=== PATIENT | female | born 1990 | race African-American/Black ===

== ENCOUNTER 2020-12-12 16:26 | Emergency (ER) | payer BC ==
[2020-12-12 16:35] VITALS: BP 113/78
[2020-12-12] MEDS ORDERED: FAMOTIDINE 20 MG TAB PO ONE (16:35)
[2020-12-12] MEDS ORDERED: ONDANSETRON 4 MG ODT TAB PO ONE (16:35)
[2020-12-12] MEDS ORDERED: IBUPROFEN 800 MG TAB PO ONE (16:37)
[2020-12-12] MEDS ORDERED: AMOXICILLIN 500 MG CAP PO ONE (16:54)
--- NOTE | 2020-12-12 17:03 | Emergency Department Report ---
ED Fever HPI - General Chief Complaint: Dyspnea/Respdistress Stated Complaint: EMPLOYEE HE[employer] PUI?: Yes Time Seen by Provider: 12/12/20 16:39 Source: patient Exam Limitations: no limitations - History of Present Illness Initial Comments: Chief complaint: Fever, sore throat, earache, fatigue HPI: This is a 30-year-old female with history of migraine headaches who presents with 7 days of symptoms including fever, headache, fatigue, left ear pain, sore throat. She has cough with deep inspiration. She has lower back pain. She has severe fatigue. 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 No sick contacts at home. She lives with her 3-year-old and 10-year-old children. She also lives with her . Patient also has had horrible night sweats. Patient also has developed canker sores in her mouth. She denies diarrhea abdominal pain vomiting. She denies loss of taste or smell. She does have poor appetite. She denies dysuria, frequent urination or malodorous urine. She has had a 2 negative COVID-19 test via nasal swabs. LMP last week Timing/Duration: week, other (Fever and associated symptoms for several days) Fever Severity/Quality: greater than 102 F Associated Symptoms: cough, muscle aches, sore throat ED Review of Systems ROS: Stated complaint: EMPLOYEE HEALTH Other details as noted in HPI Comment: All other systems reviewed and negative Constitutional: fever, malaise, weakness (Fatigue), other (Night sweats) ENT: ear pain, throat pain Respiratory: cough Cardiovascular: denies: chest pain Gastrointestinal: denies: abdominal pain, nausea, vomiting, diarrhea Genitourinary: denies: urgency, dysuria, frequency, abnormal menses Neurological: headache ED Past Medical Hx - Past Medical History Previous Medical History?: Yes Additional medical history: Migraine headache - Surgical History Past Surgical History?: Yes Additional Surgical History: x2 - Social History Smoking Status: Never Smoker Substance Use Type: None - Medications Home Medications: Home Medications Medication Instructions Recorded Confirmed Last Taken Type Azithromycin [Zithromax Z-GUDELIA] 250 mg PO DAILY 5 Days #6 tablet 12/12/20 Unknown Rx Ondansetron [Zofran Odt] 4 mg PO Q8HR PRN #10 tab.rapdis 12/12/20 Unknown Rx Prednisone [predniSONE 10 mg 10 mg PO .TAPER #1 tab.ds.pk 12/12/20 Unknown Rx (6-Day Pack, 21 Tabs)] ED Physical Exam - General Limitations: No Limitations General appearance: alert, in no apparent distress - Head Head exam: Present: atraumatic, normocephalic - Eye Eye exam: Present: normal appearance - ENT ENT exam: Present: normal orophraynx, mucous membranes moist, other (Right TM: Within normal limits, left TM: Opaque with effusion mild erythema) - Neck Neck exam: Present: normal inspection, full ROM - Respiratory Respiratory exam: Present: rales, other (bilateral rales Posterior inferior thorax). Absent: respiratory distress, wheezes, rhonchi - Cardiovascular Cardiovascular Exam: Present: regular rate, normal rhythm, normal heart sounds. Absent: systolic murmur, diastolic murmur, rubs, gallop - GI/Abdominal GI/Abdominal exam: Present: soft, normal bowel sounds. Absent: distended, tenderness, guarding, rebound - Extremities Exam Extremities exam: Present: normal inspection - Neurological Exam Neurological exam: Present: alert, oriented X3 - Psychiatric Psychiatric exam: Present: normal affect, normal mood - Skin Skin exam: Present: warm, dry, intact, normal color. Absent: rash ED Course Vital Signs 12/12/20 12/12/20 16:30 16:43 Temperature 103.0 F H Pulse Rate 107 H Respiratory 20 18 Rate Blood Pressure 113/78 O2 Sat by Pulse 93 Oximetry ED Medical Decision Making - Lab Data Laboratory Results - last 24 hr 12/12/20 Unknown Influenza A (Rapid) Negative Influenza B (Rapid) Negative Group A Strep Rapid Negative - Radiology Data Radiology results: report reviewed, image reviewed CHEST 1 VIEW 12/12/2020 5:02 PM INDICATION / CLINICAL INFORMATION: SOB, +covid. COMPARISON: None available. FINDINGS: SUPPORT DEVICES: None. HEART / MEDIASTINUM: No significant abnormality. LUNGS / PLEURA: Mild patchy bilateral pulmonary opacities in bilateral lung bases. No pneumothorax. ADDITIONAL FINDINGS: No significant additional findings. IMPRESSION: 1. Mild patchy bibasilar pulmonary opacities may represent viral versus atypical infectious process given the patient's clinical history. - Medical Decision Making 1. Viral syndrome suspect COVID-19 multifocal pneumonia supports diagnosis of COVID-19 supportive therapy prescribed azithromycin and prednisone taper. She understands that 10-day quarantine is recommended. 2. Left otitis media: Patient will receive azithromycin to address pneumonia and otitis media. Patient is appropriate for discharge. She is not exhibiting work of breathing or hypoxia. Rapid flu rapid strep both negative. Critical care attestation.: If time is entered above; I have spent that time in minutes in the direct care of this critically ill patient, excluding procedure time. ED Disposition Clinical Impression: Left otitis media, Suspected COVID-19 virus infection, Atypical pneumonia Disposition: DC- TO HOME OR SELFCARE Is pt being admited?: No Does the pt Need Aspirin: No Condition: Stable Instructions: Otitis Media, Adult, [id number], COVID-19 Prescriptions: Prednisone [predniSONE 10 mg (6-Day Pack, 21 Tabs)] 10 mg PO .TAPER #1 tab.ds.pk Azithromycin [Zithromax Z-GUDELIA] 250 mg PO DAILY 5 Days #6 tablet Ondansetron [Zofran Odt] 4 mg PO Q8HR PRN #10 tab.rapdis PRN Reason: Nausea
--- NOTE | 2020-12-12 17:17 | XRay Report ---
CHEST 1 VIEW 12/12/2020 5:02 PM INDICATION / CLINICAL INFORMATION: SOB, +covid. COMPARISON: None available. FINDINGS: SUPPORT DEVICES: None. HEART / MEDIASTINUM: No significant abnormality. LUNGS / PLEURA: Mild patchy bilateral pulmonary opacities in bilateral lung bases. No pneumothorax. ADDITIONAL FINDINGS: No significant additional findings. IMPRESSION: 1. Mild patchy bibasilar pulmonary opacities may represent viral versus atypical infectious process g iven the patient's clinical history. Signer Name: Leo Truong MD Signed: 12/12/2020 5:13 PM Workstation Name: [id number]
== END 2020-12-12 19:05 | disposition home or self-care (01) ==
LOC: ED 16:26
DX: J18.9 Pneumonia, unspecified organism (principal); H66.92 Otitis media, unspecified, left ear; G43.909 Migraine, unspecified, not intractable, without status migrainosus; Z79.899 Other long term (current) drug therapy; Z88.2 Allergy status to sulfonamides; Z88.8 Allergy status to other drugs, medicaments and biological substances; Z98.890 Other specified postprocedural states; Z20.828 Contact with and (suspected) exposure to other viral communicable diseases
CPT/HCPCS: 71045; 87116; 87400; 87430; Q0162

== ENCOUNTER 2020-12-29 07:08 | Emergency (ER) | payer BC ==
--- NOTE | 2020-12-29 07:31 | Emergency Department Report ---
ED General Adult HPI - General Chief complaint: Weakness Stated complaint: WEAKNESS PUI?: No Time Seen by Provider: 12/29/20 07:18 Source: patient, RN notes reviewed, old records reviewed Mode of arrival: Ambulatory Limitations: No Limitations - History of Present Illness Initial comments: The patient was evaluated in the emergency department for symptoms described in the history of present illness. He/she was evaluated in the context of the global COVID-19 pandemic, which necessitated consideration that the patient might be at risk for infection with the virus that causes COVID-19. Institutional protocols and algorithms that pertain to the evaluation of patients at risk for COVID-19 are in a state of rapid change based on information released by regulatory bodies including the CDC and federal and state organizations. These policies and algorithms were followed during the patient's care in the emergency department. Please note that these policies, procedures and recommendations changed on a rapid basis. Patient is a 30-year-old female. 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 I have not treated her as a provider before. She states she has no chronic medical conditions. She was seen in this department about a week ago for acute febrile illness, and suspected Covid symptomatology. She was treated as an outpatient appropriately. Of note, she had negative Covid test and flu test. Patient states that in the beginning of November, sometime around December 05, she developed typical Covid symptomatology, including cough, body aches, malaise, fatigue and weakness. The patient presents to the ER today with complaints of persistent weakness, fatigue. Denies fever, vomiting, diarrhea, abdominal pain, body pain. She does not think that she is . No travel, surgery, leg pain, leg swelling, oral contraceptive use. She is not having physical pain at this time. She indicates that she feels "wiped out." She has been back to work for about a week. Of note, multiple negative Covid test as an outpatient -: Gradual, days(s) Consistency: constant Improves with: rest Worsens with: movement - Related Data Previous Rx's Medication Instructions Recorded Last Taken Type Azithromycin [Zithromax Z-GUDELIA] 250 mg PO DAILY 5 Days #6 tablet 12/12/20 Unknown Rx Ondansetron [Zofran Odt] 4 mg PO Q8HR PRN #10 tab.rapdis 12/12/20 Unknown Rx Prednisone [predniSONE 10 mg 10 mg PO .TAPER #1 tab.ds.pk 12/12/20 Unknown Rx (6-Day Pack, 21 Tabs)] Allergies Allergy/AdvReac Type Severity Reaction Status Date / Time sulfamethoxazole Allergy Hives Verified 12/12/20 16:39 [From Bactrim] trimethoprim [From Bactrim] Allergy Hives Verified 12/12/20 16:39 ED Review of Systems ROS: Stated complaint: WEAKNESS Other details as noted in HPI Constitutional: malaise, weakness ENT: denies: dental pain, epistaxis Respiratory: shortness of breath Cardiovascular: dyspnea on exertion. denies: chest pain Gastrointestinal: denies: abdominal pain Genitourinary: denies: dysuria Musculoskeletal: myalgia Neurological: headache, weakness ED Past Medical Hx - Past Medical History Additional medical history: Migraine headache - Surgical History Additional Surgical History: x2 - Social History Smoking Status: Never Smoker Substance Use Type: None - Medications Home Medications: Home Medications Medication Instructions Recorded Confirmed Last Taken Type Azithromycin [Zithromax Z-GUDELIA] 250 mg PO DAILY 5 Days #6 tablet 12/12/20 Unknown Rx Ondansetron [Zofran Odt] 4 mg PO Q8HR PRN #10 tab.rapdis 12/12/20 Unknown Rx Prednisone [predniSONE 10 mg 10 mg PO .TAPER #1 tab.ds.pk 12/12/20 Unknown Rx (6-Day Pack, 21 Tabs)] ED Physical Exam - General Limitations: No Limitations General appearance: alert, in no apparent distress - Head Head exam: Present: atraumatic, normocephalic - Eye Eye exam: Present: normal appearance, EOMI. Absent: nystagmus - ENT ENT exam: Present: normal exam, normal orophraynx, mucous membranes moist, normal external ear exam - Neck Neck exam: Present: normal inspection, full ROM. Absent: tenderness, meningismus - Respiratory Respiratory exam: Present: normal lung sounds bilaterally. Absent: respiratory distress, wheezes, rales, rhonchi, stridor, decreased breath sounds - Cardiovascular Cardiovascular Exam: Present: regular rate, normal rhythm, normal heart sounds. Absent: bradycardia, tachycardia, irregular rhythm, systolic murmur, diastolic murmur, rubs, gallop - GI/Abdominal GI/Abdominal exam: Present: soft. Absent: distended, tenderness, rebound, rigid, pulsatile mass - Extremities Exam Extremities exam: Present: normal inspection, full ROM, other (2+ pulses noted in the bilateral upper and lower extremities. There is no palpable cord. negative Homans sign. Muscular compartments are soft. The pelvis is stable.). Absent: pedal edema, calf tenderness - Back Exam Back exam: Present: normal inspection, full ROM. Absent: tenderness, CVA tenderness (R), CVA tenderness (L), paraspinal tenderness, vertebral tenderness - Neurological Exam Neurological exam: Present: alert, oriented X3, normal gait, other (No facial droop. Tongue midline. Extraocular movements intact bilaterally. Facial s ensation intact to light touch in V1, V2, V3 distribution bilaterally. 5 and a 5 strength in 4 extremities. Sensation intact to light touch in 4 extremities.). Absent: motor sensory deficit - Psychiatric Psychiatric exam: Present: normal affect, normal mood - Skin Skin exam: Present: warm, dry, intact, normal color. Absent: rash ED Course Vital Signs 12/29/20 12/29/20 07:36 08:12 Temperature 98.2 F Pulse Rate 78 Respiratory 18 Rate Blood Pressure 139/73 [Left] O2 Sat by Pulse 98 Oximetry O2 Sat by Pulse 99 Oximetry [ Digit-Finger] - Reevaluation(s) Reevaluation #1: 12/29/20 07:59 Differential diagnosis, including but not limited to: Post Covid syndrome, electrolyte derangement, thyroid derangement, renal derangement, hepatic derangement Assessment and plan: 30-year-old female, who is currently afebrile, with reassuring vital signs, PERC negative, not currently tachycardic, hypoxic or tachypneic, who I suspect clinically had Covid virus, and now has post Covid syndrome/deconditioning. Lung sounds are clear. Saturating 99% on room air. Do not see indication for repeat chest x-ray. Counseled patient that this is most likely post Covid syndrome. Check appropriate laboratory studies, EKG, reassess. Reevaluation #2: 12/29/20 09:06 Reassessed. No acute distress. Resting comfortably in stretcher. Laboratory studies are unremarkable. EKG with probable juvenile T wave inversion. Patient reassessed, explained significance of findings to patient. She has articulated understanding. I suspect the patient is experiencing post Covid syndrome symptomatology. She will need to follow-up with an outpatient primary care doctor - Pulse Oximetry Interpretation Digit-Finger Initial Pulse Oximetry Readin O2 Sat by Pulse Oximetry: 99 Actions Taken: none ED Medical Decision Making - Lab Data Result diagrams: 12/29/20 07:49 12/29/20 07:49 Vital Signs 12/29/20 07:36 Temperature 98.2 F Pulse Rate 78 Respiratory 18 Rate Blood Pressure 139/73 [Left] O2 Sat by Pulse 98 Oximetry Lab Results 12/29/20 12/29/20 12/29/20 Range/Units 07:49 07:49 07:49 WBC 7.7 (4.5-11.0) K/mm3 RBC 4.13 (3.65-5.03) M/mm3 Hgb 13.1 (10.1-14.3) gm/dl Hct 38.1 (30.3-42.9) % MCV 92 (79-97) fl MCH 32 (28-32) pg MCHC 35 H (30-34) % RDW 12.0 L (13.2-15.2) % Plt Count 217 (140-440) K/mm3 Lymph % (Auto) 28.8 (13.4-35.0) % [place] % (Auto) 6.8 (0.0-7.3) % Eos % (Auto) 2.7 (0.0-4.3) % Baso % (Auto) 0.8 (0.0-1.8) % Lymph # (Auto) 2.2 (1.2-5.4) K/mm3 [place] # (Auto) 0.5 (0.0-0.8) K/mm3 Eos # (Auto) 0.2 (0.0-0.4) K/mm3 Baso # (Auto) 0.1 (0.0-0.1) K/mm3 Seg Neutrophils % 60.9 (40.0-70.0) % Seg Neutrophils # 4.7 (1.8-7.7) K/mm3 Sodium 136 L (137-145) mmol/L Potassium 4.0 (3.6-5.0) mmol/L Chloride 104.3 (98-107) mmol/L Carbon Dioxide 25 (22-30) mmol/L Anion Gap 11 mmol/L BUN 9 (7-17) mg/dL Creatinine 0.6 (0.6-1.2) mg/dL Estimated GFR > 60 ml/min BUN/Creatinine Ratio 15 % Glucose 98 (65-100) mg/dL Calcium 8.7 (8.4-10.2) mg/dL Magnesium 1.90 (1.7-2.3) mg/dL Total Bilirubin 0.50 (0.1-1.2) mg/dL AST 20 (5-40) units/L ALT 33 (7-56) units/L Alkaline Phosphatase 45 (35-129) units/L Total Creatine Kinase 66 (30-135) units/L Total Protein 7.4 (6.3-8.2) g/dL Albumin 4.2 (3.9-5) g/dL Albumin/Globulin Ratio 1.3 % TSH 1.690 (0.270-4.200) mlU/mL HCG, Quant (0-4) mIU/mL 12/29/20 Range/Units 07:49 WBC (4.5-11.0) K/mm3 RBC (3.65-5.03) M/mm3 Hgb (10.1-14.3) gm/dl Hct (30.3-42.9) % MCV (79-97) fl MCH (28-32) pg MCHC (30-34) % RDW (13.2-15.2) % Plt Count (140-440) K/mm3 Lymph % (Auto) (13.4-35.0) % [place] % (Auto) (0.0-7.3) % Eos % (Auto) (0.0-4.3) % Baso % (Auto) (0.0-1.8) % Lymph # (Auto) (1.2-5.4) K/mm3 [place] # (Auto) (0.0-0.8) K/mm3 Eos # (Auto) (0.0-0.4) K/mm3 Baso # (Auto) (0.0-0.1) K/mm3 Seg Neutrophils % (40.0-70.0) % Seg Neutrophils # (1.8-7.7) K/mm3 Sodium (137-145) mmol/L Potassium (3.6-5.0) mmol/L Chloride (98-107) mmol/L Carbon Dioxide (22-30) mmol/L Anion Gap mmol/L BUN (7-17) mg/dL Creatinine (0.6-1.2) mg/dL Estimated GFR ml/min BUN/Creatinine Ratio % Glucose (65-100) mg/dL Calcium (8.4-10.2) mg/dL Magnesium (1.7-2.3) mg/dL Total Bilirubin (0.1-1.2) mg/dL AST (5-40) units/L ALT (7-56) units/L Alkaline Phosphatase (35-129) units/L Total Creatine Kinase (30-135) units/L Total Protein (6.3-8.2) g/dL Albumin (3.9-5) g/dL Albumin/Globulin Ratio % TSH (0.270-4.200) mlU/mL HCG, Quant < 2 (0-4) mIU/mL - EKG Data -: EKG Interpreted by Me EKG shows normal: sinus rhythm Rate: normal - EKG Data When compared to previous EKG there are: previous EKG unavailable 12/29/20 08:12 Sinus rhythm, 65 bpm. Normal axis, normal intervals. Juvenile T wave inversion pattern V2, V3. Abnormal EKG. Not a STEMI. Critical care attestation.: If time is entered above; I have spent that time in minutes in the direct care of this critically ill patient, excluding procedure time. ED Disposition Clinical Impression: Persistent fatigue after COVID-19 Disposition: DC-01 TO HOME OR SELFCARE Is pt being admited?: No Does the pt Need Aspirin: No Condition: Stable Instructions: Fatigue Additional Instructions: As we discussed, we suspect that the patient is experiencing post Covid syndrome fatigue. This is a clinical impression/diagnosis. Please follow-up with a primary care doctor within the next week. Please return to the emergency room right away with new pain, worsened pain, migration of pain, projectile vomiting, change in mental status, confusion, inability to tolerate liquid feeds, new, worsened or different symptoms not present on the initial emergency room evaluation. Please drink plenty of fluids, patient may alternate [id number] ibuprofen and acetaminophen as needed for pain and/or discomfort. Referrals: NATALIE CURTIS MD [Staff Physician] - 3-5 Days [facility] [Provider Group] - 3-5 Days Forms: Work/School Release Form(ED)
[2020-12-29 07:41] VITALS: BP 139/73
[2020-12-29 08:29] LABS: Basophils # (Auto) 0.1 K/mm3 (0.0-0.1); Basophils % (Auto) 0.8 % (0.0-1.8); Eosinophils # (Auto) 0.2 K/mm3 (0.0-0.4); Eosinophils % (Auto) 2.7 % (0.0-4.3); Hematocrit 38.1 % (30.3-42.9); Hemoglobin 13.1 gm/dl (10.1-14.3); Lymphocytes # (Auto) 2.2 K/mm3 (1.2-5.4); Lymphocytes % (Auto) 28.8 % (13.4-35.0); Mean Corpuscular HGB Conc 35 % (30-34); Mean Corpuscular Volume 92 fl (79-97); Monocytes # (Auto) 0.5 K/mm3 (0.0-0.8); Monocytes % (Auto) 6.8 % (0.0-7.3); Platelet Count 217 K/mm3 (140-440); Red Blood Count 4.13 M/mm3 (3.65-5.03)
[2020-12-29 08:52] LABS: Alanine Aminotransferase 33 units/L (7-56); Albumin 4.2 g/dL (3.9-5); Blood Urea Nitrogen 9 mg/dL (7-17); Calcium 8.7 mg/dL (8.4-10.2); Hemolysis Index 5
[2020-12-29 08:54] LABS: BUN/Creatinine Ratio 15
== END 2020-12-29 09:14 | disposition home or self-care (01) ==
LOC: ED 07:08
DX: U07.1 COVID-19 (principal); R53.83 Other fatigue; R53.1 Weakness; G43.909 Migraine, unspecified, not intractable, without status migrainosus; Z98.890 Other specified postprocedural states; Z79.2 Long term (current) use of antibiotics; Z79.899 Other long term (current) drug therapy; Z88.8 Allergy status to other drugs, medicaments and biological substances
CPT/HCPCS: 36415; 80053; 82550; 83735; 84443; 84702; 85025; 93005

== ENCOUNTER 2021-08-16 01:00 | Emergency (ER) | payer BC ==
[~2021-08-16 01:00] MED LIST: ACETAMINOPHEN 325 MG TAB PO ONE; ONDANSETRON 4 MG/2 ML INJ IV ONE; SODIUM CHLORIDE 0.9% 1000 ML 1,000 ML IV ONE
[2021-08-16] MEDS ORDERED: SODIUM CHLORIDE 0.9% 1000 ML 1,000 ML ONE (01:08)
[2021-08-16] MEDS ORDERED: ONDANSETRON 4 MG/2 ML INJ ONE (01:08)
[2021-08-16] MEDS ORDERED: ACETAMINOPHEN 325 MG TAB ONE (01:08)
[2021-08-16] MEDS ORDERED: guaiFENesin/CODEINE 100-10MG ORAL LIQD 5 ML PO ONE (03:28)
--- NOTE | 2021-08-16 03:30 | Emergency Department Report ---
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 Patient presented to the ER complaining of fever, shortness of breath and cough for the last 2 to 3 days. Patient stated that she tested positive for COVID-19 and yesterday. Patient stated that she was taking TheraFlu with no help. Patient denied any chest pain. She also denied any vomiting. No abdominal pain. -: Last night - Related Data Previous Rx's Medication Instructions Recorded Last Taken Type Azithromycin [Zithromax Z-GUDELIA] 250 mg PO DAILY 5 Days #6 tablet 12/12/20 Unknown Rx Ondansetron [Zofran Odt] 4 mg PO Q8HR PRN #10 tab.rapdis 12/12/20 Unknown Rx Prednisone [predniSONE 10 mg 10 mg PO .TAPER #1 tab.ds.pk 12/12/20 Unknown Rx (6-Day Pack, 21 Tabs)] Allergies Allergy/AdvReac Type Severity Reaction Status Date / Time sulfamethoxazole Allergy Hives Verified 12/12/20 16:39 [From Bactrim] trimethoprim [From Bactrim] Allergy Hives Verified 12/12/20 16:39 ED Review of Systems ROS: Stated complaint: Other details as noted in HPI Comment: All other systems reviewed and negative Constitutional: chills, fever Respiratory: cough, shortness of breath, SOB with exertion, SOB at rest. denies: wheezing Cardiovascular: denies: chest pain, palpitations Gastrointestinal: nausea, diarrhea. denies: abdominal pain, vomiting, constipation, hematemesis, melena, hematochezia Musculoskeletal: denies: back pain Neurological: weakness. denies: headache, numbness, paresthesias, confusion, abnormal gait ED Past Medical Hx - Past Medical History Additional medical history: Migraine headache - Surgical History Additional Surgical History: x2 - Social History Smoking Status: Never Smoker Substance Use Type: None - Medications Home Medications: Home Medications Medication Instructions Recorded Confirmed Last Taken Type Azithromycin [Zithromax Z-GUDELIA] 250 mg PO DAILY 5 Days #6 tablet 12/12/20 Unknown Rx Ondansetron [Zofran Odt] 4 mg PO Q8HR PRN #10 tab.rapdis 12/12/20 Unknown Rx Prednisone [predniSONE 10 mg 10 mg PO .TAPER #1 tab.ds.pk 12/12/20 Unknown Rx (6-Day Pack, 21 Tabs)] ED Physical Exam - General General appearance: alert, in no apparent distress, anxious - Head Head exam: Present: atraumatic, normocephalic, normal inspection - Eye Eye exam: Present: normal appearance, PERRL - ENT ENT exam: Present: mucous membranes dry - Neck Neck exam: Present: normal inspection, full ROM. Absent: tenderness, meningismus - Respiratory Respiratory exam: Present: normal lung sounds bilaterally - Cardiovascular Cardiovascular Exam: Present: regular rate, normal rhythm, normal heart sounds - GI/Abdominal GI/Abdominal exam: Present: soft. Absent: distended, tenderness, guarding, rebound - Extremities Exam Extremities exam: Present: normal inspection, full ROM, normal capillary refill. Absent: tenderness - Back Exam Back exam: Present: normal inspection, full ROM. 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 Patient presented to the ER complaining of fever, shortness of breath and cough for the last 2 to 3 days. Patient stated that she tested positive for COVID-19 and yesterday. Patient stated that she was taking TheraFlu with no help. Patient denied any chest pain. She also denied any vomiting. No abdominal pain. Labs reviewed and is unremarkable. Chest x-ray showed no evidence of pneumonia. Patient received normal saline, Zofran, Robitussin-AC and Tylenol. Patient stated that she is feeling much better. Patient oxygen saturation remained above 99% on room air. Patient advised to follow-up with her primary care physician in the next 2 to 3 days and to return to the ER if she develop any new symptoms. Critical care attestation.: If time is entered above; I have spent that time in minutes in the direct care of this critically ill patient, excluding procedure time. ED Disposition Clinical Impression: COVID-19 virus infection Disposition: HOME / SELF CARE / HOMELESS Is pt being admited?: No Condition: Stable Instructions: COVID-19, Prevent the Spread of COVID-19 if You Are Sick - [facility] Referrals: PRIMARY CARE,MD [Primary Care Provider] - 3-5 Days Forms: Work/School Release Form(ED)
[2021-08-16 03:48] VITALS: BP 102/59
--- NOTE | 2021-08-17 12:20 | XRay Report ---
. Chest INDICATION / CLINICAL INFORMATION: covid + post vax. COMPARISON: None available. FINDINGS: SUPPORT DEVICES: None. HEART /PULMONARY VASCULATURE: No significant abnormality. LUNGS / PLEURA: Low lung volumes are present. Mild opacities within the right lung base and mid left lung, suspicious for infiltrate. No sizable pleural effusion. No pneumothorax. ADDITIONAL FINDINGS: No significant additional findings. IMPRESSION: Mild bilateral patchy airspace opacities, suspicious for infiltrate. Signer Name: Martin Booker MD Signed: 08/16/2021 1:31 AM Workstation Name: [id number]
== END 2021-08-16 04:05 | disposition home or self-care (01) ==
LOC: ED 01:00
DX: U07.1 COVID-19 (principal); G43.909 Migraine, unspecified, not intractable, without status migrainosus; Z98.890 Other specified postprocedural states; Z79.899 Other long term (current) drug therapy
CPT/HCPCS: 36415; 71045; 87040; 99283; J2405; J7030

== ENCOUNTER 2022-04-05 12:56 | Emergency (ER) | payer OTHER ==
[2022-04-05 13:06] VITALS: BP 137/80
--- NOTE | 2022-04-05 13:29 | XRay Report ---
RIGHT WRIST 4 VIEWS INDICATION: wrist pain. COMPARISON: None. IMPRESSION: No acute osseous or soft tissue abnormality. No significant DJD. Signer Name: Fausto Dior Jr, MD Signed: 04/05/2022 1:25 PM Workstation Name: [id number]
--- NOTE | 2022-04-05 13:56 | Emergency Department Report ---
ED Upper Extremity Inj HPI - General Chief Complaint: Extremity Injury, Upper Stated Complaint: RT HAND INJURY Time Seen by Provider: 04/05/22 13:04 Source: patient Mode of arrival: Ambulatory Limitations: No Limitations - History of Present Illness Initial Comments: This is a 32-year-old female nontoxic, well nourished in appearance, no acute signs of distress presents to the ED with c/o of right wrist pain 1 day. Patient stated that while at work a patient injured her wrist. Patient denies any injuries or trauma. Stated has some numbness and tingling. Patient denies any fever, chills, nausea, vomiting, chest pain, shortness of breath, headache, stiff neck. Patient denies any joint swelling or joint redness. Patient stated has some decreased range of motion due to pain. Patient denies any allergies. MD Complaint: Injury to:: right, wrist -: days(s) Other Extremity Injury: Wrist: Right Place: work Severity scale (0 -10): 8 Improves With: immobilization Worsens With: movement of extremity Associated Symptoms: denies other symptoms. denies: weakness, numbness, neck pain, suspects foreign body, nausea/vomiting, heard/felt popping sensat - Related Data Previous Rx's Medication Instructions Recorded Last Taken Type Azithromycin [Zithromax Z-GUDELIA] 250 mg PO DAILY 5 Days #6 tablet 12/12/20 Unknown Rx Ondansetron [Zofran Odt] 4 mg PO Q8HR PRN #10 tab.rapdis 12/12/20 Unknown Rx Prednisone [predniSONE 10 mg 10 mg PO .TAPER #1 tab.ds.pk 12/12/20 Unknown Rx (6-Day Pack, 21 Tabs)] Ondansetron [Zofran Odt] 4 mg PO Q8HR PRN #14 tab.rapdis 08/16/21 Unknown Rx guaiFENesin/CODEINE [Robitussin AC] 10 ml PO TID PRN #100 ml 08/16/21 Unknown Rx Acetaminophen/Codeine [Tylenol 1 tab PO Q6H PRN #12 tab 04/05/22 Unknown Rx /Codeine # 3 tab] Allergies Allergy/AdvReac Type Severity Reaction Status Date / Time sulfamethoxazole Allergy Hives Verified 08/16/21 03:36 [From Bactrim] trimethoprim [From Bactrim] Allergy Hives Verified 08/16/21 03:36 ED Review of Systems ROS: Stated complaint: RT HAND INJURY Other details as noted in HPI Comment: All other systems reviewed and negative Constitutional: denies: chills, fever Eyes: denies: eye pain, eye discharge, vision change ENT: denies: ear pain, throat pain Respiratory: denies: cough, shortness of breath, wheezing Cardiovascular: denies: chest pain, palpitations Endocrine: no symptoms reported Gastrointestinal: denies: abdominal pain, nausea, diarrhea Genitourinary: denies: urgency, dysuria, discharge Musculoskeletal: denies: back pain, joint swelling, arthralgia Skin: denies: rash, lesions Neurological: denies: headache, weakness, paresthesias Psychiatric: denies: anxiety, depression Hematological/Lymphatic: denies: easy bleeding, easy bruising ED Past Medical Hx - Past Medical History Previous Medical History?: No Additional medical history: Migraine headache - Surgical History Past Surgical History?: No Additional Surgical History: x2 - Social History Smoking Status: Never Smoker Substance Use Type: None - Medications Home Medications: Home Medications Medication Instructions Recorded Confirmed Last Taken Type Azithromycin [Zithromax Z-GUDELIA] 250 mg PO DAILY 5 Days #6 tablet 12/12/20 Unknown Rx Ondansetron [Zofran Odt] 4 mg PO Q8HR PRN #10 tab.rapdis 12/12/20 Unknown Rx Prednisone [predniSONE 10 mg 10 mg PO .TAPER #1 tab.ds.pk 12/12/20 Unknown Rx (6-Day Pack, 21 Tabs)] Ondansetron [Zofran Odt] 4 mg PO Q8HR PRN #14 tab.rapdis 08/16/21 Unknown Rx guaiFENesin/CODEINE [Robitussin AC] 10 ml PO TID PRN #100 ml 08/16/21 Unknown Rx Acetaminophen/Codeine [Tylenol 1 tab PO Q6H PRN #12 tab 04/05/22 Unknown Rx /Codeine # 3 tab] ED Physical Exam - General Limitations: No Limitations General appearance: alert, in no apparent distress - Head Head exam: Present: atraumatic, normocephalic - Eye Eye exam: Present: normal appearance - Neck Neck exam: Present: full ROM - Respiratory Respiratory exam: Absent: respiratory distress - Cardiovascular Cardiovascular Exam: Present: regular rate - Extremities Exam Extremities exam: Present: normal inspection, full ROM, tenderness, normal capillary refill. Absent: joint swelling - Expanded Upper Extremity Exam Right General: Present: normal inspection Shoulder Exam: Present: normal inspection, full ROM. Absent: tenderness, swelling Upper Arm exam: Present: normal inspection, full ROM. Absent: tenderness, swelling Elbow exam: Present: normal inspection, full ROM. Absent: tenderness, swelling Forearm Wrist exam: Present: normal inspection, full ROM. Absent: tenderness, swelling Hand Wrist exam: Present: normal inspection, full ROM, tenderness. Absent: swelling, abrasion, laceration, ecchymosis, deformity, crepidus, dislocation, erythema, amputation, nail avulsion, subungual hematoma Hand L/R Front: 1 - Positive: other (pain here) Hand L/R Back: 1 - pain here Vascular: Present: normal capillary refill. Absent: vascular compromise ( Neurovascular within normal limits) - Back Exam Back exam: Present: full ROM - Neurological Exam Neurological exam: Present: alert, oriented X3, normal gait - Psychiatric Psychiatric exam: Present: normal affect, normal mood - Skin Skin exam: Present: warm, dry, intact, normal color. Absent: rash ED Course Vital Signs 04/05/22 13:02 Temperature 97.2 F L Pulse Rate 87 Respiratory 18 Rate Blood Pressure 137/80 [Left] O2 Sat by Pulse 99 Oximetry - Reevaluation(s) Reevaluation #1: 04/05/22 13:55 Patient is speaking in full sentences with no signs of distress noted. ED Medical Decision Making - Radiology Data [facility] [address] [place] [address] XRay Report Signed Patient: ELYSIA GALLO MR#: [id number] : 1990 Acct:[id number] Age/Sex: 32 / F ADM Date: 04/05/22 Loc: ED Attending Dr: Ordering Physician: SANGEETA SMILEY NP Date of Service: 04/05/22 Procedure(s): XR wrist 3+V RT Accession Number(s): [id number] cc: SANGEETA SMILEY NP Fluoro Time In Minutes: RIGHT WRIST 4 VIEWS INDICATION: wrist pain. COMPARISON: None. IMPRESSION: No acute osseous or soft tissue abnormality. No significant DJD. Signer Name: Fausto Dior Jr, MD Signed: 04/05/2022 1:25 PM Workstation Name: [id number] Transcribed By: TTR Dictated By: FAUSTO DIOR JR, MD Electronically Authenticated By: FAUSTO DIOR JR, MD Signed Date/Time: 04/05/22 132 DD/ 23 TD/TT: - Medical Decision Making This is a 32-year-old female that presents with right wrist injury. Patient is stable and was examined by me. I referred patient to an orthopedic doctor for further evaluation for possible MRI. X-ray has been obtained and dictated by the radiologist. Patient is notified of the x-ray report with noted by the patient. Patient does have normal ROM with some tenderness and no joint swelling. No ecchymosis. no joint redness or swelling. Not warm to touch. No signs of cellulites present. Patient received a wrist immobilizer. Patient was instructed to RICE therapy. Patient is discharged with Tylenol with codeine. At time of discharge, the patient does not seem toxic or ill in appearance. No acute signs of distress noted. Patient agrees to discharge treatment plan of care. No further questions noted by the patient. Critical care attestation.: If time is entered above; I have spent that time in minutes in the direct care of this critically ill patient, excluding procedure time. ED Disposition Clinical Impression: Right wrist injury Qualifiers: Encounter type: initial encounter Qualified Code(s): S69.91XA - Unspecified injury of right wrist, hand and finger(s), initial encounter Disposition: HOME / SELF CARE / HOMELESS Is pt being admited?: No Does the pt Need Aspirin: No Condition: Stable Instructions: RICE Therapy for Routine Care of Injuries, [id number] Additional Instructions: Follow-up with a orthopedic doctor in 3-5 days or if symptoms worsen and continue return to emergency room as soon as possible. Do not operate any machinery while taking Tylenol with codeine as this may cause drowsiness. Prescriptions: Acetaminophen/Codeine [Tylenol /Codeine # 3 tab] 1 tab PO Q6H PRN #12 tab PRN Reason: Pain , Severe (7-10) Referrals: PRIMARY CAREMD [Referring] - 3-5 Days DEEP ORTIZ MD [Staff Physician] - 3-5 Days Forms: Work/School Release Form(ED) Time of Disposition: 13:58
== END 2022-04-05 14:52 | disposition home or self-care (01) ==
LOC: ED 12:56
DX: S69.91XA Unspecified injury of right wrist, hand and finger(s), initial encounter (principal); X58.XXXA Exposure to other specified factors, initial encounter; Y93.89 Activity, other specified; Y92.89 Other specified places as the place of occurrence of the external cause; Y99.8 Other external cause status
CPT/HCPCS: 99283